=== PATIENT | female | born 1940 | race Caucasian/White ===

== ENCOUNTER 2016-09-07 09:41 | Outpatient (CLI) | payer OTHER ==
[~2016-09-07 09:41] MED LIST: ASPI-496 PO; ATEN25TA PO; BUPR100T11 PO; CHOL20003 PO; LEVO50TA5 PO; LORA10TA75 PO; SIMV10TA3 PO; VITA1CAP PO
== END 2016-09-07 09:49 | disposition home or self-care (01) ==
LOC: ROC 09:41
PROVIDERS: ATTEND Radiology Radiation Oncology
DX: Z02.9 Encounter for administrative examinations, unspecified (principal)

== ENCOUNTER 2017-03-23 16:43 | Inpatient (IN) | payer OTHER ==
[~2017-03-23] VITALS: Ht 160 cm; Wt 82.3 kg
[~2017-03-23 16:43] MED LIST changes: +CHOL2000 PO; -CHOL20003 PO
[2017-03-23] MEDS ORDERED: HYDR-883 PO (17:17)
[2017-03-23 19:13] LABS: HEMATOCRIT 29.2 % (34.6-47.8); WHITE BLOOD COUNT 5.1 x10^3/uL (3.4-10)
[2017-03-23 19:19] LABS: ASPARTATE AMINO TRANSFERASE 40 U/L (15-37); BLOOD UREA NITROGEN 10 mg/dL (7-18)
[2017-03-23] MEDS ORDERED: POLYETHYLENE GLYCOL 17 GM PACKET PO PRN (20:00)
[2017-03-23] MEDS ORDERED: SODIUM CHLORIDE FLUSH 10ML SYR IVF PRN (20:00)
[2017-03-23] MEDS ORDERED: ONDANSETRON ODT 4 MG PO PRN (20:00)
[2017-03-23] MEDS ORDERED: DOCUSATE 100 MG CAPSULE PO PRN (20:00)
[2017-03-23] MEDS ORDERED: ACETAMINOPHEN 325 MG TABLET PO PRN (20:00)
[2017-03-23] MEDS ORDERED: TEMAZEPAM 15 MG CAPSULE PO PRN (20:00)
[2017-03-23] MEDS ORDERED: LABETALOL 5MG/ML, 20ML IVPush PRN (20:00)
[2017-03-23] MEDS ORDERED: ONDANSETRON 2MG/ML, 2ML IVPush PRN (20:00)
[2017-03-23] MEDS ORDERED: morphine SULFATE 10 MG/ML, 1ML IVPush PRN (20:00)
[2017-03-23 21:00] VITALS: BP 179/70
[2017-03-23] MEDS ORDERED: SIMVASTATIN 10 MG TABLET PO SCH (21:00)
[2017-03-23 22:25] VITALS: BP 179/70
[2017-03-23 22:42] VITALS: BP 122/71
[2017-03-23] MEDS: ATENOLOL 25 MG TABLET PO SCH (23:34)
[2017-03-23] MEDS: HYDROcodone/APAP 5/325 TABLET PO PRN (23:35)
[2017-03-24 02:23] VITALS: BP 113/66
[2017-03-24] MEDS: HYDROcodone/APAP 5/325 TABLET PO PRN ×2 (04:01→10:46)
[2017-03-24 05:46] LABS: HEMATOCRIT 28.2 % (34.6-47.8); HEMOGLOBIN 9.7 g/dL (11.7-16.4); WHITE BLOOD COUNT 3.9 x10^3/uL (3.4-10)
[2017-03-24 05:58] LABS: BLOOD UREA NITROGEN 8 mg/dL (7-18)
[2017-03-24 06:27] LABS: FERRITIN 153.9 ng/mL (8-252); TOTAL IRON BINDING CAPACITY 163 mcg/dL (250-450)
[2017-03-24 06:45] VITALS: BP 112/66
[2017-03-24] MEDS: ATENOLOL 25 MG TABLET PO SCH (08:26)
[2017-03-24] MEDS ORDERED: LEVOTHYROXINE 50 MCG TABLET PO SCH (09:00)
[2017-03-24] MEDS ORDERED: BUPROPION 100 MG TABLET PO SCH (09:00)
[2017-03-24] MEDS ORDERED: ASPIRIN 81 MG TABLET EC PO SCH (09:00)
[2017-03-24 14:22] VITALS: BP 106/63
[2017-03-24] MEDS ORDERED: FERR325T16 PO (15:59)
[2017-03-24 17:46] VITALS: BP 119/60
== END 2017-03-24 17:35 | disposition home or self-care (01) | DRG 560 ==
LOC: ED 18:39 → EDIP 20:35 → 4NOR 20:38
PROVIDERS: ADMIT Internal Medicine; ATTEND Internal Medicine
DX: M97.01XA Periprosthetic fracture around internal prosthetic right hip joint, initial encounter (principal); E44.0 Moderate protein-calorie malnutrition; D53.9 Nutritional anemia, unspecified; I10 Essential (primary) hypertension; E03.9 Hypothyroidism, unspecified; Z68.32 Body mass index [BMI] 32.0-32.9, adult; Z91.010 Allergy to peanuts; Z91.048 Other nonmedicinal substance allergy status; E78.00 Pure hypercholesterolemia, unspecified; E78.5 Hyperlipidemia, unspecified; I89.0 Lymphedema, not elsewhere classified; Z85.42 Personal history of malignant neoplasm of other parts of uterus; Z90.710 Acquired absence of both cervix and uterus; Z96.641 Presence of right artificial hip joint
CPT/HCPCS: 36415; 80048; 80053; 82607; 82728; 83540; 83550; 84443; 85025

== ENCOUNTER → 2017-07-02 | Outpatient (CLI) | payer OTHER ==
[~2017-07-02] MED LIST changes: +ACID1TAB7 PO; +CEFD300C37 PO; +FERR325T16 PO; +HYDR-883 PO; +METR500T PO; +ONDA4TAB13 PO; +TRAM50TA2 PO
== END | disposition home or self-care (01) ==
LOC: CFH 10:02
PROVIDERS: ATTEND Family Medicine
DX: Z12.31 Encounter for screening mammogram for malignant neoplasm of breast (principal)
CPT/HCPCS: 77067

== ENCOUNTER → 2017-07-05 | Outpatient (CLI) | payer OTHER | END | disposition home or self-care (01) | LOC: CFH 09:32 | PROVIDERS: ATTEND Family Medicine | DX: Z13.820 Encounter for screening for osteoporosis (principal); M85.88 Other specified disorders of bone density and structure, other site; S72.001A Fracture of unspecified part of neck of right femur, initial encounter for closed fracture; X58.XXXA Exposure to other specified factors, initial encounter; Y93.89 Activity, other specified; Y92.89 Other specified places as the place of occurrence of the external cause; Y99.8 Other external cause status | CPT/HCPCS: 77080 ==

== ENCOUNTER → 2018-10-14 | Outpatient (CLI) | payer MEDICARE ==
[~2018-10-14] MED LIST changes: +HYDR-3652 PO; -HYDR-883 PO; +OMNIPAQUE 350 MG/ML, 100ML BOTTLE ONE
== END | disposition home or self-care (01) ==
LOC: CFH 14:19
PROVIDERS: ATTEND Specialist
DX: C54.9 Malignant neoplasm of corpus uteri, unspecified (principal); K57.30 Diverticulosis of large intestine without perforation or abscess without bleeding; M47.816 Spondylosis without myelopathy or radiculopathy, lumbar region; Z96.641 Presence of right artificial hip joint
CPT/HCPCS: 71046; 74177; Q9967

== ENCOUNTER → 2018-11-24 | Outpatient (CLI) | payer MEDICARE ==
[~2018-11-24] MED LIST changes: -OMNIPAQUE 350 MG/ML, 100ML BOTTLE ONE
== END | disposition home or self-care (01) ==
LOC: CFH 15:43
PROVIDERS: ATTEND Specialist
DX: Z12.31 Encounter for screening mammogram for malignant neoplasm of breast (principal)
CPT/HCPCS: 77067

== ENCOUNTER → 2020-05-04 | Outpatient (CLI) | payer MEDICARE ==
[~2020-05-04] MED LIST changes: +SIMV10TA18 PO; -SIMV10TA3 PO
== END | disposition home or self-care (01) ==
LOC: CFH 13:46
PROVIDERS: ATTEND Specialist
DX: Z12.31 Encounter for screening mammogram for malignant neoplasm of breast (principal)
CPT/HCPCS: 77063; 77067